=== PATIENT | male | born 1990 | race Caucasian/White ===

== ENCOUNTER 2023-11-21 13:58 | Emergency (ER) | payer OTHER ==
[2023-11-21 14:07] VITALS: RESP 18
[2023-11-21] MEDS: LIDOCAINE 1% INJ 10MG/ML (20 ML MDV) SQ ONE (14:27)
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
[2023-11-21] MEDS: HYDROmorphone 0.5 MG/0.5 ML SYRINGE IVP STA (14:51)
--- NOTE | 2023-11-21 15:29 | XR ---
EXAMINATION TYPE: XR hand complete 3 views LT DATE OF EXAM: 11/21/2023 Comparison: None Clinical History: 33-year-old male nail gun injury, foreign body, pain. Findings: A large gauge nail embedded itself in the radial sided soft tissues near the base of the thumb from a palmar approach. The distal shaft of the nail closely approaches the dorsal cortex of the first meta carpal and it is difficult to determine if it is contacting the bone. We note a couple spurs along th e length of the nail which will make it difficult to extract. No underlying acute fracture, subluxati on, dislocation. Impression: Large gauge nail embedded within the radial sided soft tissues near the base of the thumb. The distal aspect of the nail closely approaches the dorsal cortex of the first metacarpal. It is difficult to determine if the nail touches the bone. Note a couple metal spurs along the length of the nail which may cause some tissue tearing during extraction. No underlying acute fracture.
[2023-11-21] MEDS: BACITRACIN OINT 1 EACH PACKET TOPICAL ONE (16:17)
[2023-11-21 17:09] VITALS: BP 134/87; PULSE 77; TEMP 98.2
== END 2023-11-21 16:35 | disposition home or self-care (01) ==
LOC: EC 13:58
DX: S60.552A Superficial foreign body of left hand, initial encounter (principal); J45.909 Unspecified asthma, uncomplicated; F17.290 Nicotine dependence, other tobacco product, uncomplicated; F12.90 Cannabis use, unspecified, uncomplicated; Z91.010 Allergy to peanuts; Z91.030 Bee allergy status; W45.0XXA Nail entering through skin, initial encounter; Y92.009 Unspecified place in unspecified non-institutional (private) residence as the place of occurrence of the external cause; Y99.0 Civilian activity done for income or pay
CPT/HCPCS: 99284 ×2; 64450 ×2; 96374; 73130; J2001; J1170

== ENCOUNTER 2024-11-14 17:18 | Emergency (ER) | payer OTHER ==
[2024-11-14 17:30] VITALS: PULSE 78; RESP 18; TEMP 97.9
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
== END 2024-11-14 18:42 | disposition home or self-care (01) ==
LOC: EC 17:18
DX: H61.22 Impacted cerumen, left ear (principal); F17.290 Nicotine dependence, other tobacco product, uncomplicated; Z91.030 Bee allergy status; Z91.010 Allergy to peanuts
CPT/HCPCS: 69209; 99282